=== PATIENT | female | born 1960 | race Caucasian/White ===

== ENCOUNTER → 2020-02-19 12:07 | Outpatient (CLI) | payer OTHER, SELFPAY ==
--- NOTE | 2020-02-19 12:09 | DI.CT.S_ITS ---
PROCEDURE: CT HEAD/BRAIN WO CON INDICATIONS: Aneurysm TECHNIQUE: Noncontrast 4.5 mm thick angled axial sections acquired from the foramen magnum to the vertex, with coronal and sagittal reformats. For radiation dose reduction, the following was used: automated exposure control, adjustment of mA and/or kV according to patient size. COMPARISON: None. FINDINGS: Image quality: Excellent. CSF spaces: Basal cisterns are patent. No extra-axial fluid collections. Ventricles are normal in size and shape. Brain: No midline shift. No intracranial masses or hemorrhage. Begmu-white matter interface is normal. Skull and face: Calvarium and visualized facial bones are intact, without suspicious lesions. Sinuses: Visualized sinuses and mastoids are clear. IMPRESSION: No acute intracranial finding. Please note that without IV contrast, intracranial aneurysms cannot be detected. Consider CT angiogram for further evaluation if clinically warranted. Dictated by: Jac Mchugh M.D. on 02/19/2020 at 13:08 Approved by: Jac Mchugh M.D. on 02/19/2020 at 13:11
--- NOTE | 2020-02-19 12:55 | DI.CT.S_ITS ---
PROCEDURE: CT CHEST WO CON INDICATIONS: Abnormal finding of lung field TECHNIQUE: Noncontrast 2.0-2.5 mm thick sections acquired from the pulmonary apices to the posterior costophrenic angles. 7 mm thick axial MIP and 5 mm coronal and sagittal reformats were then acquired. A low radiation dose technique was utilized. COMPARISON: [facility], CT, THORAX WITHOUT CONTRAST, 01/12/2016, 13:01. FINDINGS: Image quality: Diagnostic, given the low radiation dose technique. Lungs and pleura: 3 mm pulmonary nodule at the left lung base is unchanged when compared with the CT dated January 12, 2016. Ill-defined ground-glass airspace opacity surrounding a distal bronchus are redemonstrated within the left upper lobe. Accounting for variation in slice thickness, findings are similar in extent (series 3/images 113-122). A previously visualized is 7 mm in diameter pulmonary nodule at the left hilum now measures 9 mm in diameter (series 3/image 106). It is unclear whether the size differential is secondary to growth or difference in slice thickness. No new pulmonary nodules. No acute airspace opacities. Mediastinum: Heart size is normal. No pericardial effusion. No mediastinal adenopathy by size criteria. Thoracic aorta and central pulmonary arteries are normal in size. Scattered atheromatous calcifications are present within the aortic arch. Esophagus is normal in caliber. No hiatal hernia. Bones and chest wall: No suspicious bony lesions. No vertebral body compression fractures. No axillary or supraclavicular adenopathy by size criteria. Thyroid gland is unremarkable . Abdomen: The liver demonstrates diffuse fatty infiltration. Visualized upper abdomen solid organs and bowel loops appear normal in the absence of contrast. IMPRESSION: 1. Stable appearance of left upper lobe ground-glass opacities when compared with the study from 2016. Given the chronicity of this finding, no further follow-up recommended. 2. Probable stable 9 mm left hilar pulmonary nodule when accounting for variation in slice thickness compared to the 2016 study. 3. No new pulmonary nodules or acute airspace opacities. 4. Hepatic steatosis. Fleischner Society criteria for SOLID lung nodule followup. Nodule size (mm)Low-risk patientHigh-risk patient<6 (single or multiple)No routine followup.Optional CT at 12 months. 6-8 (single or multiple)CT at 6-12 months, then optional CT at 18-24 mo.CT at 6-12 months, then CT at 18-24 months. >8 (single)CT at 3 months, PET-CT, or biopsy. Same as for low-risk pts. >8 (multiple)CT at 3-6 months, then optional CT at 18-24 mo.CT at 3-6 months, then CT at 18-24 months. Fleischner Society criteria for SUB-SOLID lung nodule followup. Solitary pure ground-glass nodules<6 mm (ground glass or part solid)No followup needed. 6 mm or larger (ground glass)CT at 6-12 months to confirm persistence, then CT every 2 years until 5 years.6 mm or larger (part solid)CT at 3-6 months to confirm persistence, then annual CT until 5 years if unchanged and solid component remains <6 mm. Multiple sub-solid nodules<6 mmCT at 3-6 months, then CT consider at 2 & 4 years for high risk patients. [address] at 3-6 months. Subsequent management based on most suspicious lesions. Recommendations do not apply to lung cancer screening, patients with immunosuppression, or patients with known primary cancer. Dictated by: Kathy Suazo M.D. on 02/19/2020 at 13:45 Approved by: Kathy Suazo M.D. on 02/19/2020 at 13:50
== END ==
PROVIDERS: Family Provider Internal Medicine; PCP Internal Medicine; Referring Provider Internal Medicine; Visit Provider Internal Medicine
DX: I72.9 Aneurysm of unspecified site (principal); R91.8 Other nonspecific abnormal finding of lung field; Z78.0 Asymptomatic menopausal state; E07.9 Disorder of thyroid, unspecified
CPT/HCPCS: 70450; 71250; 77080

== ENCOUNTER → 2020-04-07 10:39 | Outpatient (CLI) | payer OTHER, SELFPAY ==
--- NOTE | 2020-04-07 | DI.US.S_ITS ---
PROCEDURE: US RENAL COMPLETE INDICATIONS: Chronic kidney disease, stage 3 unspecified TECHNIQUE: Real-time scanning was performed of the kidneys and bladder, with image documentation. COMPARISON: None. FINDINGS: Kidneys: Both kidneys demonstrate generalized increased echogenicity. Right kidney measures 9 cm long; left kidney measures 10.3 cm long. Right renal cortical thickness is 1.1 cm; left renal cortical thickness is 1.7 cm. Renal cortical echotexture is normal. No nephrolithiasis. Mild bilateral hydronephrosis can be seen, which does not resolve postvoid. Mild lobulation can be seen of both kidneys, yet without eri masses identified. Bladder: Pre-void bladder volume is 248 mL. Post-void residual is 21 mL. Pre-void images demonstrate no intraluminal masses or stones. On pre-void images, both ureteral jets are noted with color Doppler interrogation. (Of note, ureteral jets may not be detectable in up to 25% of cases due to insufficient differences in specific gravity between ureteral and bladder urine). Miscellaneous: No free pelvic fluid. Fatty liver infiltration is incidentally noted. IMPRESSION: The right kidney is small in size. Both kidneys demonstrate increased echogenicity, which is consistent with chronic renal disease. Mild bilateral hydronephrosis is seen, which does not resolve postvoid. No solid renal masses are seen, although both kidneys demonstrate a lobulated contour. Mild postvoid residual, 21 cc. Dictated by: Rosalio Stallworth M.D. on 04/07/2020 at 11:05 Approved by: Rosalio Stallworth M.D. on 04/07/2020 at 11:07
== END ==
PROVIDERS: Family Provider Internal Medicine; PCP Internal Medicine; Referring Provider Internal Medicine Nephrology; Visit Provider Internal Medicine Nephrology
DX: N18.30 Chronic kidney disease, stage 3 unspecified (principal); N13.30 Unspecified hydronephrosis
CPT/HCPCS: 76770

== ENCOUNTER → 2020-06-10 11:28 | Outpatient (CLI) | payer OTHER, SELFPAY ==
--- NOTE | 2020-06-10 12:02 | DI.CT.S_ITS ---
PROCEDURE: CT ABDOMEN PELVIS WO CON INDICATIONS: Unspecified hydronephrosis TECHNIQUE: Noncontrast 5 mm thick sections acquired from the diaphragms to the symphysis. 5 mm coronal and sagittal reformats were then performed. For radiation dose reduction, the following was used: automated exposure control, adjustment of mA and/or kV according to patient size. COMPARISON: [facility], CT, PE STUDY (CTA CHEST), 10/08/2015, 12:29. FINDINGS: Image quality: Excellent. ABDOMEN: Lung bases: Lung bases are clear. Heart size is normal. Heterogeneous geographic low attenuation seen the liver which is poorly defined probably related to fatty infiltration. The Gallbladder normal. Pancreas is normal in contours. Spleen is normal in size. No adrenal nodules. Kidneys are normal in size, without hydronephrosis or nephrolithiasis. Peritoneum and bowel: Unenhanced bowel loops demonstrate normal wall thickness and caliber. No free fluid or air. Normal appendix. Nodes and vessels: No retroperitoneal or mesenteric adenopathy by size criteria. Aorta and inferior vena cava are normal in caliber. Miscellaneous: No ventral hernias. PELVIS: Genitourinary: Bladder wall thickness is normal. Miscellaneous: No inguinal hernias or adenopathy. Bones: No vertebral body compression fracture. Spondylytic changes and facet arthropathy. IMPRESSION: No urolithiasis. No evidence of urinary obstruction. Normal appendix. Dictated by: Familia Curran M.D. on 06/10/2020 at 13:08 Approved by: Familia Curran M.D. on 06/10/2020 at 13:18
== END ==
PROVIDERS: Family Provider Internal Medicine; PCP Internal Medicine; Referring Provider Internal Medicine; Visit Provider Internal Medicine Nephrology
DX: N13.30 Unspecified hydronephrosis (principal)
CPT/HCPCS: 74176

== ENCOUNTER 2021-02-05 12:49 | Emergency (ER) | payer OTHER, SELFPAY ==
[2021-02-05 13:05] VITALS: BP 190/80; PULSE 51; RESP 15; TEMP 36.2; O2SAT 99; BMI 26.5
--- NOTE | 2021-02-05 13:07 | DI.RAD.S_ITS ---
PROCEDURE: XR HAND LT MIN 3V INDICATIONS: smashed fingers left hand 3rd/4th TECHNIQUE: 3 views of the hand(s) acquired. COMPARISON: None. FINDINGS: Bones: No fractures or dislocations. Carpal bones are normally aligned. No suspicious bony lesions. Osteoarthritic degenerative changes noted in the 1st CMC, 1st DIP and 3rd DIP joints. Soft tissues: No suspicious soft tissue calcifications. IMPRESSION: No fracture. No acute osseous lesion. If symptoms and/or clinical suspicion for pathology persists, further assessment with repeat radiographs (7-10 days) or advanced imaging (e.g. CT, MRI or bone scan) should be considered. Dictated by: Michaela Blanchard MD, PhD on 02/05/2021 at 13:33 Approved by: Michaela Blanchard MD, PhD on 02/05/2021 at 13:34
--- NOTE | 2021-02-05 16:31 | ED_ITS ---
HPI - Extremity Injury (Upper) General Chief Complaint: Extremity Injury, Upper Stated Complaint: SMASHED FINGERS LT HAND Time Seen by Provider: 02/05/21 16:29 Source: patient Mode of arrival: Ambulatory Limitations: no limitations History of Present Illness HPI narrative: Staci presents today with chief complaint of left middle finger pain. She reports that she was at work and she was sliding 1 of the glass doors and caught her finger in the door jam. It initially did not hurt but has been throbbing today. She is left-hand dominant. Last tetanus was 6+ years ago. She denies any other concerns or complaints at this time. Related Data Home Medications Medication Instructions Recorded Confirmed CA PANTOTHENATE/FOLIC ACID/VIT 1 tab PO QDAY #0 10/10/12 (MULTIVITAMIN) CHOLECALCIFEROL (VITAMIN D) 5,000 units PO QDAY #0 10/10/12 DICLOFENAC SODIUM (VOLTAREN) 75 mg PO AMCC #0 10/10/12 Flaxseed Oil (#FLAXSEED OIL) 1,300 mg PO QDAY #0 10/10/12 colesevelam 625 mg tablet (WelChol) 625 mg PO HS #0 10/10/12 metaxalone 800 mg tablet (Skelaxin) 800 mg PO HS #0 10/10/12 misoprostol 200 mcg tablet 200 mcg PO QDAY #0 10/10/12 (Cytotec) Allergies Allergy/AdvReac Type Severity Reaction Status Date / Time oxycodone [OXYCODONE] AdvReac Intermediate VOMIT Verified 02/05/21 13:05 Review of Systems Review of Systems Narrative: As per HPI Patient History Social History Smoking Status: Unknown if ever smoked Smoking Status: Unknown if ever smoked alcohol intake frequency: holidays/special occasions only Substance Use Type: does not use Exam Narrative Exam Narrative: Exam Narrative: Const General: cooperative, healthy appearing, comfortable, no acute distress, well developed and well groomed Nutritional Appearance: average body habitus Orientation: alert and oriented x3 HENMT Head: normal to inspection and atraumatic Ears: hearing grossly normal bilaterally Nose: external nose normal and nares normal Face and sinus: normal facial exam Neck Neck: normal visual inspection and supple Resp Effort & Inspection: normal respiratory effort, able to speak in complete sentences, no audible wheezes, not labored, no nasal flaring and no respiratory distress Neuro General: alert, oriented x3, gait normal, tone normal and moves all extremities Cognition: normal cognition Speech: speech normal Gait: normal gait Extremities Upper extremities exposed. She has small, nonbleeding, superficial laceration to her distal left 3rd finger. No significant underlying bony tenderness. Full range of motion. Capillary refill is normal. Sensation is intact. Psych Appearance: grossly normal and well kempt Mental Status: mental status grossly normal Speech and Movement: speech and movement normal Mood: congruent mood Affect: normal affect Initial Vital Signs Initial Vital Signs: Vital Signs Temperature 97.2 F L 02/05/21 13:05 Pulse Rate 51 L 02/05/21 13:05 Respiratory Rate 15 02/05/21 13:05 Blood Pressure 190/80 H 02/05/21 13:05 Pulse Oximetry 99 02/05/21 13:05 Course Orders Ordered: Discontinued Medications Diphtheria/Tetanus/Acell Pertussis (Tet,Diph,Pertuss(Acell),Vac/Pf 0.5 Ml Syrin ge) 0.5 ml IM .ONCE ONE Stop: 02/05/21 16:43 Last Admin: 02/05/21 16:47 Dose: 0.5 ml Documented by: VIOLETTE Vital Signs Vital signs: Vital Signs - 8 hr 02/05/21 13:05 Temperature 97.2 F L Pulse Rate 51 L Respiratory Rate 15 Blood Pressure 190/80 H Pulse Oximetry 99 MDM - Extremity Injury (Upper) MDM Narrative Medical decision making narrative: X-ray does not show any significant fracture. No procedure needed to control bleeding. Do not suspect any significant vascular injury or nerve injury. Recommend watchful waiting at this time. Return precautions discussed. Patient verbalizes understanding and agrees to plan and has no further concerns at this time. Thank you A [id number] system was used with the dictation of this note. Please disregard any spelling or grammatical errors. Discharge Plan Departure Patient Disposition: Home Clinical Impression: Laceration of left middle finger Qualifiers: Encounter type: initial encounter Damage to nail status: without damage Foreign body presence: without foreign body Qualified Code(s): S61.213A - Laceration without foreign body of left middle finger without damage to nail, initial encounter Discharge Date/Time: 02/05/21 16:59 Activity Restrictions/Additional Instructions: It was nice to meet you this afternoon. Please monitor for signs of infection which include increased redness, swelling, pain, fever and return if you experience any of these. Otherwise, I expect this to heal up quickly. Thank you Power Case PAC Prescriptions: No Action DICLOFENAC SODIUM (VOLTAREN) 75 mg PO AMCC Qty: 0 RF: 0 misoprostol [Cytotec] 200 MCG tablet 200 mcg PO QDAY Qty: 0 RF: 0 metaxalone [Skelaxin] 800 MG tablet 800 mg PO HS Qty: 0 RF: 0 CHOLECALCIFEROL (VITAMIN D) 5,000 units PO QDAY Qty: 0 RF: 0 CA PANTOTHENATE/FOLIC ACID/VIT (MULTIVITAMIN) 1 tab PO QDAY Qty: 0 RF: 0 Flaxseed Oil (#FLAXSEED OIL) 1,300 mg PO QDAY Qty: 0 RF: 0 colesevelam [WelChol] 625 MG tablet 625 mg PO HS Qty: 0 RF: 0 Referrals: Tino Avery MD [Primary Care Provider] -
[2021-02-05] MEDS: TET,DIPH,PERTUSS(ACELL),VAC/PF 0.5 ML SYRINGE IM (16:47)
== END 2021-02-05 16:59 | disposition home or self-care (01) ==
PROVIDERS: Emergency Provider Physician Assistant; Family Provider Internal Medicine; PCP Internal Medicine
DX: S61.213A Laceration without foreign body of left middle finger without damage to nail, initial encounter (principal); W23.0XXA Caught, crushed, jammed, or pinched between moving objects, initial encounter; Y99.0 Civilian activity done for income or pay; Z23 Encounter for immunization
CPT/HCPCS: 73130; 90471; 99283; 90715

== ENCOUNTER 2021-03-15 09:50 | Emergency (ER) | payer OTHER, SELFPAY ==
[2021-03-15] VITALS (11 sets, daily range): BP systolic 137–163; BP diastolic 63–73; PULSE 45–56; RESP 10–27; TEMP 37.1; O2SAT 96–100
--- NOTE | 2021-03-15 09:53 | DI.RAD.S_ITS ---
PROCEDURE: XR CHEST 1V INDICATIONS: Chest pain TECHNIQUE: One view of the chest was acquired. COMPARISON: [facility], , CHEST 1 VIEW, 10/08/2015, 11:27. FINDINGS: Surgical changes and devices: None. Lungs and pleura: Lungs are clear. No pleural effusions or pneumothorax. Mediastinum: Mediastinal contours appear normal. Heart size is normal. Bones and chest wall: No suspicious bony lesions. Overlying soft tissues appear unremarkable. IMPRESSION: No acute cardiopulmonary pathology. Dictated by: Thee Araujo M.D. on 03/15/2021 at 10:40 Approved by: Thee Araujo M.D. on 03/15/2021 at 10:40
--- NOTE | 2021-03-15 10:06 | ED_ITS ---
HPI - Chest Pain General Chief Complaint: Chest Pain Stated Complaint: radiating chest and shoulder pain Time Seen by Provider: 03/15/21 09:52 Source: patient Mode of arrival: Family Vehicle Limitations: no limitations History of Present Illness HPI narrative: Patient is a 60-year-old female. No prior cardiac history. Does have a history of high blood pressure. Has a history of chronic bronchitis. Is here for evaluation of off and on left-sided chest discomfort that radiates to her back into her left shoulder. She states that has been off and on for the past couple days/week. Last evening it was worse than what it has been. At the time of my exam she is having some discomfort but is much better than was last evening. She is afebrile. No coughing. States the symptoms do not get better with palpation movement were eating. Has no shortness of breath. Pain does not change with breathing. She has had symptoms similar to this a couple years ago and she stated that she was diagnosed with pneumonia at the time. She has no fevers and no productive cough currently. No abdominal pain. No nausea vomiting. No urinary symptoms. No change in bowel habits. No lower extremity swelling. No sore throat. No headache. No vision changes. No rashes. Related Data Home Medications Medication Instructions Recorded Confirmed CA PANTOTHENATE/FOLIC ACID/VIT 1 tab PO QDAY #0 10/10/12 (MULTIVITAMIN) CHOLECALCIFEROL (VITAMIN D) 5,000 units PO QDAY #0 10/10/12 DICLOFENAC SODIUM (VOLTAREN) 75 mg PO [facility] #0 10/10/12 Flaxseed Oil (#FLAXSEED OIL) 1,300 mg PO QDAY #0 10/10/12 colesevelam 625 mg tablet (WelChol) 625 mg PO HS #0 10/10/12 metaxalone 800 mg tablet (Skelaxin) 800 mg PO HS #0 10/10/12 misoprostol 200 mcg tablet 200 mcg PO QDAY #0 10/10/12 (Cytotec) Allergies Allergy/AdvReac Type Severity Reaction Status Date / Time oxycodone [OXYCODONE] AdvReac Intermediate VOMIT Verified 03/15/21 10:04 Review of Systems Constitutional Constitutional: Reports as per HPI and Reports system reviewed and no additional complaints, except as documented Eyes Eyes: Reports system reviewed and no additional complaints, except as documented ENT Ears, Nose, Mouth, and Throat: Reports system reviewed and no additional complaints, except as documented and Reports as per HPI Cardiovascular Cardiovascular: Reports as per HPI and Reports system reviewed and no additional complaints, except as documented Respiratory Respiratory: Reports as per HPI and Reports system reviewed and no additional complaints, except as documented Gastrointestinal Gastrointestinal: Reports system reviewed and no additional complaints, except as documented Genitourinary Genitourinary: Reports system reviewed and no additional complaints, except as documented Musculoskeletal Musculoskeletal: Reports system reviewed and no additional complaints, except as documented Integumentary/Breasts Skin/Breast: Reports system reviewed and no additional complaints, except as documented Neurologic Neurologic: Reports system reviewed and no additional complaints, except as documented Endocrine Endocrine: Reports system reviewed and no additional complaints, except as documented Hematologic/Lymphatic Hematologic/Lymphatic: Reports system reviewed and no additional complaints, except as documented Allergic/Immunologic Allergic/Immunologic: Reports system reviewed and no additional complaints, except as documented Patient History Medical History (Updated 03/15/21 @ 13:52 by Pipo Rocha DO) Chronic bronchitis Hypertension Pulmonary nodule, left Social History Smoking Status: Never smoker Smoking Status: Never smoker alcohol intake frequency: holidays/special occasions only Substance Use Type: does not use Exam Initial Vital Signs Initial Vital Signs: Vital Signs Temperature 98.7 F 03/15/21 10:00 Pulse Rate 53 L 03/15/21 10:00 Respiratory Rate 16 03/15/21 10:00 Blood Pressure 163/70 H 03/15/21 10:00 Pulse Oximetry 100 03/15/21 10:00 Const General: cooperative, healthy appearing and comfortable [facility] Head: normal to inspection and normocephalic Eyes General: appearance normal, both eyes and all related structures Neck Neck: normal visual inspection Chest Chest: normal inspection of the chest, No crepitus and No tenderness Resp Effort & Inspection: normal respiratory effort and no cough Cardio Rate: regular rate Rhythm: regular rhythm GI Inspection: normal to inspection Palpation: soft and No tender Back/Spine/Pelvis Back: normal to inspection Skin General: no rashes or lesions noted Lesions: no lesions Rashes: no rashes Neuro General: patient alert, patient awake, patient oriented x3 and moves all extremities Extrem General: normal to inspection, capillary refill normal and No edema Psych Appearance: grossly normal and well kempt Scores HEART Score Heart Score history: Slightly Suspicious Heart Score EKG: Normal Heart Score Age: 45-64 years old Heart Score risk factors: 1-2 risk factors Heart Score troponin: < or = to normal limit Heart Score Total: 2 Course Orders Ordered: ED Orders 03/15/21 09:53 XR chest 1V Stat 03/15/21 09:54 EKG-12 Lead Stat 03/15/21 10:20 Complete Blood Count AUTO DIFF Stat Comprehensive Metabolic Panel Stat Lipase Stat Troponin & CK Cardiac Panel Stat 03/15/21 13:05 Troponin & CK Cardiac Panel Stat Vital Signs Vital signs: Vital Signs - 8 hr 03/15/21 10:00 03/15/21 10:08 03/15/21 10:30 Temperature 98.7 F Pulse Rate 53 L 55 L 56 L Respiratory Rate 16 13 12 Blood Pressure 163/70 H Pulse Oximetry 100 100 100 03/15/21 10:31 03/15/21 10:56 03/15/21 11:00 Temperature Pulse Rate 52 L 48 L 47 L Respiratory Rate 10 L 20 11 L Blood Pressure 141/65 H 139/73 138/68 Pulse Oximetry 99 98 97 03/15/21 11:30 03/15/21 12:00 Temperature Pulse Rate 50 L 45 L Respiratory Rate 27 H 15 Blood Pressure 137/63 Pulse Oximetry 99 96 MDM - Chest Pain Lab Data Attestation: I reviewed the patient's lab results. Result diagrams: 03/15/21 10:20 03/15/21 10:20 Labs: Lab Results 03/15/21 03/15/21 03/15/21 Range/Units 10:20 10:20 13:05 WBC 5.1 (4.5-11.0) X10^3/uL RBC 3.95 L (4.0-5.2) X10^6/uL Hgb 12.1 (12.0-16.0) g/dL Hct 36.1 (36-46) % MCV 91.3 (80-100) fL MCH 30.6 (26-34) PG MCHC 33.6 (30-36) % RDW 12.9 (11.6-14.8) % Plt Count 220 (150-400) X10^3/uL Neut % (Auto) 63.0 (50-75) % Lymph % (Auto) 24.1 L (25-40) % Milam % (Auto) 9.8 (3-14) % Eos % (Auto) 2.6 (2-4) % Baso % (Auto) 0.5 (0-2) % Neut # (Auto) 3200 (4575-0099) /uL Lymph # (Auto) 1200 (8547-4737) /uL Milam # (Auto) 500 (0-900) /uL Eos # (Auto) 100 (0-450) /uL Baso # (Auto) 0 (0-100) /uL Sodium 135 L (137-145) mmol/L Potassium 4.0 (3.4-5.1) mmol/L Chloride 105 (98-107) mmol/L Carbon Dioxide 26 (22-32) mmol/L BUN 17 (7-17) mg/dL Creatinine 0.99 (0.52-1.04) mg/dL Estimated GFR 57.2 L (>60) mL/min BUN/Creatinine Ratio 17.2 (6-22) Glucose 92 (80-110) mg/dL Calcium 9.8 (8.4-10.2) mg/dL Total Bilirubin 0.5 (0.2-1.3) mg/dL AST 30 (14-36) IU/L ALT 26 (<35) IU/L Alkaline Phosphatase 47 (38-126) U/L Total Creatine Kinase 83 130 (30-135) U/L CK-MB (CK-2) TNP 1.45 CK-MB (CK-2) Rel Index TNP 1.1 L Troponin I < 0.012 < 0.012 (0.01-0.034) ng/mL Total Protein 6.6 (6.3-8.2) g/dL Albumin 4.2 (3.5-5.0) g/dL Globulin 2.4 (1.7-4.1) g/dL Albumin/Globulin Ratio 1.8 (1.0-2.8) Lipase 113 (23-300) U/L Imaging Data Chest x-ray: Radiologist's Impression: [address] [address] XRay Report Signed Patient: Staci Nance MR#: [id number] : 1960 Acct:[id number] Age/Sex: 60 / F Date of Service: 03/15/21 Loc: ED Accession Number: [id number] ?? Procedure: XR chest 1V Ordering Provider: Pipo Rocha D.O. PROCEDURE:? XR CHEST 1V ? INDICATIONS:? Chest pain ? TECHNIQUE:? One view of the chest was acquired.? ? COMPARISON:? Located Within [facility], , CHEST 1 VIEW, 10/08/2015, 11:27. ? FINDINGS:? ? Surgical changes and devices:? None.? ? Lungs and pleura:? Lungs are clear.? No pleural effusions or pneumothorax.? ? Mediastinum:? Mediastinal contours appear normal.? Heart size is normal.? ? Bones and chest wall:? No suspicious bony lesions.? Overlying soft tissues appear unremarkable.? ? IMPRESSION:? No acute cardiopulmonary pathology. ? ? Dictated by: Thee Araujo M.D. on 03/15/2021 at 10:40 ? ? Approved by: Thee Araujo M.D. on 03/15/2021 at 10:40?? ECG Data Attestation: I personally reviewed and interpreted this ECG as follows: Interpretation: Sinus bradycardia Ventricular rate of 49 Normal axis Normal QRS Normal QTC No ST T wave changes MDM Narrative Medical decision making narrative: Low risk heart score, EKG is unremarkable, troponins negative x2. Had a discussion with the patient regarding this. The plan will be is to have her follow-up with her primary doctor for further risk stratification to include a stress test. She was given return precautions and follow-up instructions. She expressed understanding and agreement. Discharge Plan Departure Patient Disposition: Home Clinical Impression: Atypical chest pain Instructions: DI for Atypical Chest Pain Activity Restrictions/Additional Instructions: I do recommend that you contact your primary doctor to discuss further workup and to schedule a stress test. Continue to take all of your medications as di rected. Return to the emergency department for any new or worsening symptoms Prescriptions: No Action DICLOFENAC SODIUM (VOLTAREN) 75 mg PO [facility] Qty: 0 RF: 0 misoprostol [Cytotec] 200 MCG tablet 200 mcg PO QDAY Qty: 0 RF: 0 metaxalone [Skelaxin] 800 MG tablet 800 mg PO HS Qty: 0 RF: 0 CHOLECALCIFEROL (VITAMIN D) 5,000 units PO QDAY Qty: 0 RF: 0 CA PANTOTHENATE/FOLIC ACID/VIT (MULTIVITAMIN) 1 tab PO QDAY Qty: 0 RF: 0 Flaxseed Oil (#FLAXSEED OIL) 1,300 mg PO QDAY Qty: 0 RF: 0 colesevelam [WelChol] 625 MG tablet 625 mg PO HS Qty: 0 RF: 0 Referrals: Tino Avery MD [Primary Care Provider] -
[2021-03-15 10:37] LABS: Add Manual Diff / Slide Review NO; Basophils Absolute Auto 0 /uL (0-100); Basophils Percent Auto 0.5 % (0-2); Eosinophils Absolute Auto 100 /uL (0-450); Eosinophils Percent Auto 2.6 % (2-4); Hematocrit 36.1 % (36-46); Hemoglobin 12.1 g/dL (12.0-16.0); Lymphocytes Absolute Auto 1200 /uL (1100-4500); Lymphocytes Percent Auto 24.1 % (25-40); Mean Corpuscular HGB Conc 33.6 % (30-36); Mean Corpuscular Hemoglobin 30.6 PG (26-34); Mean Corpuscular Volume 91.3 fL (80-100); Monocytes Absolute Auto 500 /uL (0-900); Monocytes Percent Auto 9.8 % (3-14); Neutrophils Absolute Auto 3200 /uL (1500-7000); Platelet Count 220 X10^3/uL (150-400); Red Blood Cell Count 3.95 X10^6/uL (4.0-5.2); Red Cell Distribution Width 12.9 % (11.6-14.8); White Blood Cell Count 5.1 X10^3/uL (4.5-11.0)
[2021-03-15 10:53] LABS: Alanine Aminotransferase 26 IU/L (<35); Albumin 4.2 g/dL (3.5-5.0); Albumin Globulin Ratio 1.8 (1.0-2.8); Alkaline Phosphatase 47 U/L (38-126); Aspartate Aminotransferase 30 IU/L (14-36); BUN Creatinine Ratio 17.2 (6-22); Bilirubin Total 0.5 mg/dL (0.2-1.3); Blood Urea Nitrogen 17 mg/dL (7-17); Calcium 9.8 mg/dL (8.4-10.2); Carbon Dioxide 26 mmol/L (22-32); Chloride 105 mmol/L (98-107); Creatine Kinase 83 U/L (30-135); Estimated Glomerular Filt Rate 57.2 mL/min (>60); Globulin 2.4 g/dL (1.7-4.1); Glucose 92 mg/dL (80-110); HEMOLYSIS 17 (0-50); Lipase 113 U/L (23-300); Sodium 135 mmol/L (137-145); Total Protein 6.6 g/dL (6.3-8.2)
[2021-03-15 11:02] LABS: Troponin I < 0.012 ng/mL (0.01-0.034)
[2021-03-15 13:29] LABS: Creatine Kinase 130 U/L (30-135)
[2021-03-15 13:41] LABS: Troponin I < 0.012 ng/mL (0.01-0.034)
[2021-03-15 13:44] LABS: CKMB % Relative Index 1.1 % (1.5-5.0); Creatine Kinase MB 1.45 ng/mL (<2.37)
== END 2021-03-15 13:57 | disposition home or self-care (01) ==
PROVIDERS: Emergency Provider Emergency Medicine; Family Provider Internal Medicine; PCP Internal Medicine
DX: R07.89 Other chest pain (principal)
CPT/HCPCS: 36415; 71045; 80053; 82550; 82553; 83690; 84484; 85025; 93005; 93010; 99284

== ENCOUNTER → 2021-04-07 15:47 | Outpatient (CLI) | payer OTHER, SELFPAY ==
--- NOTE | 2021-04-07 15:49 | DI.MG.S_ITS ---
BILATERAL DIGITAL SCREENING MAMMOGRAM 3D/2D WITH CAD: 04/07/2021 CLINICAL: Routine screening. Comparison is made to exams dated: 08/15/2017 mammogram - [facility], 06/11/2013 mammogram, and 11/16/2010 mammogram - [facility]. There are scattered fibroglandular elements in both breasts. Current study was also evaluated with a Computer Aided Detection (CAD) system. There is a focal asymmetry in the right breast at 11 o'clock middle depth. This is more prominent. No other significant masses, calcifications, or other findings are seen in either breast. IMPRESSION: INCOMPLETE: NEEDS ADDITIONAL IMAGING EVALUATION The focal asymmetry in the right breast is indeterminate. Additional views with possible ultrasound are recommended. This exam was interpreted at Station ID: [id number]. NOTE: For mammograms, a report in lay terms will be sent to the patient. Approximately 15% of breast malignancies will not be visualized mammographically. In the management of a palpable breast mass, a negative mammogram must not discourage biopsy of a clinically suspicious lesion. Electronically Signed By: Jac Mchugh M.D., jr/rolando:04/07/2021 16:15:43 letter sent: Additional Imaging Needed ACR BI-RADS Category 0: Incomplete [id number]
== END ==
PROVIDERS: Family Provider Internal Medicine; PCP Internal Medicine; Referring Provider Internal Medicine; Visit Provider Internal Medicine
DX: Z12.31 Encounter for screening mammogram for malignant neoplasm of breast (principal)
CPT/HCPCS: 77063; 77067

== ENCOUNTER → 2021-05-05 09:29 | Outpatient (CLI) | payer OTHER, SELFPAY ==
--- NOTE | 2021-05-05 09:30 | DI.US.S_ITS ---
LIMITED ULTRASOUND OF RIGHT BREAST: 05/05/2021 CLINICAL: Patient returns today to evaluate a focal asymmetry in the right breast. Comparison is made to exams dated: 05/05/2021 mammogram, 04/07/2021 mammogram, and 08/15/2017 mammogram - [facility]. Real-time ultrasound of the right breast 11 o'clock region was performed. Begum scale images of the real-time examination were reviewed. There is a area of fibroglandular tissue in the right breast at 11 o'clock middle depth. This corresponds with the mammographic finding. IMPRESSION: BENIGN There is no sonographic evidence of malignancy. The area of fibroglandular tissue in the right breast is benign. A 1 year screening mammogram is recommended. Exam findings were conveyed to the patient. This exam was interpreted at Station ID: [id number]. Electronically Signed By: Nestor Burks M.D. slc/:05/05/2021 10:25:00 letter sent: Normal Exam Ultrasound BI-RADS: 2 Benign
--- NOTE | 2021-05-05 09:30 | DI.MG.S_ITS ---
UNILATERAL RIGHT DIGITAL DIAGNOSTIC MAMMOGRAM 3D/2D WITH ADDITIONAL VIEWS: 05/05/2021 CLINICAL: Additional evaluation requested from prior study. Comparison is made to exams dated: 04/07/2021 mammogram, 08/15/2017 mammogram - [facility], 06/11/2013 mammogram, and 11/16/2010 mammogram - [facility]. There are scattered fibroglandular elements in right breast. There is a focal asymmetry in the right breast at 11 o'clock middle depth. This is less prominent. No other significant masses or calcifications are seen in the breast. IMPRESSION: INCOMPLETE: NEEDS ADDITIONAL IMAGING EVALUATION The focal asymmetry in the right breast resembles fibroglandular tissue and is indeterminate. A targeted ultrasound is recommended and will immediately follow. This exam was interpreted at Station ID: [id number]. NOTE: For mammograms, a report in lay terms will be sent to the patient. Approximately 15% of breast malignancies will not be visualized mammographically. In the management of a palpable breast mass, a negative mammogram must not discourage biopsy of a clinically suspicious lesion. Electronically Signed By: Nestor Burks M.D. slc/:05/05/2021 10:08:20 ACR BI-RADS Category 0: Incomplete [id number]
== END ==
PROVIDERS: Family Provider Internal Medicine; PCP Internal Medicine; Referring Provider Internal Medicine; Visit Provider Internal Medicine
DX: R92.8 Other abnormal and inconclusive findings on diagnostic imaging of breast (principal); N64.89 Other specified disorders of breast
CPT/HCPCS: 76642; 77065; G0279

== ENCOUNTER → 2022-06-02 16:13 | Outpatient (CLI) | payer OTHER, SELFPAY ==
--- NOTE | 2022-06-02 16:15 | DI.MG.S_ITS ---
BILATERAL DIGITAL SCREENING MAMMOGRAM 3D/2D WITH CAD: 06/02/2022 CLINICAL: Routine screening. Comparison is made to exams dated: 04/07/2021 mammogram, 08/15/2017 mammogram - [facility], and 06/11/2013 mammogram - [facility]. There are scattered areas of fibroglandular density in both breasts (category b / 25%-50% glandular tissue). Current study was also evaluated with a Computer Aided Detection (CAD) system. No significant masses, calcifications, or other findings are seen in either breast. There has been no significant interval change. IMPRESSION: NEGATIVE There is no mammographic evidence of malignancy. A 1 year screening mammogram is recommended. Based on the Tyrer Cuzick model (a risk assessment model) the patient's lifetime risk is 10.1% and her 10 year risk is 4.9%. According to the ACR, ACS, and NCCN guidelines, an annual breast MRI exam along with mammogram is recommended if the patient's lifetime risk is 20% or greater. This exam was interpreted at Station ID: [id number]. NOTE: For mammograms, a report in lay terms will be sent to the patient. Approximately 15% of breast malignancies will not be visualized mammographically. In the management of a palpable breast mass, a negative mammogram must not discourage biopsy of a clinically suspicious lesion. Electronically Signed By: Dorie jones/rolando:06/03/2022 09:37:27 letter sent: Normal Exam ACR BI-RADS Category 1: Negative [id number]
== END ==
PROVIDERS: Family Provider Internal Medicine; PCP Internal Medicine; Referring Provider Internal Medicine; Visit Provider Internal Medicine
DX: Z12.31 Encounter for screening mammogram for malignant neoplasm of breast (principal)
CPT/HCPCS: 77063; 77067

== ENCOUNTER 2022-08-16 11:02 | Emergency (ER) | payer OTHER, SELFPAY ==
[2022-08-16 11:08] VITALS: BP 167/77; PULSE 72; RESP 15; TEMP 36.2; O2SAT 97; BMI 29.2
--- NOTE | 2022-08-16 11:17 | DI.RAD.S_ITS ---
PROCEDURE: XR KNEE LT 3V INDICATIONS: left knee / ankle pain TECHNIQUE: 3 views of the knee were acquired. COMPARISON: None. FINDINGS: Bones: No fractures or dislocations. No suspicious bony lesions. Patellofemoral joint space narrowing. Medial lateral compartments are relatively preserved. Soft tissues: No joint effusion. No suspicious soft tissue calcifications. IMPRESSION: Patellofemoral osteoarthritis Approved by: Hilario Tom M.D. on 08/16/2022 at 10:57
--- NOTE | 2022-08-16 11:17 | DI.RAD.S_ITS ---
PROCEDURE: XR ANKLE LT MIN 3V INDICATIONS: ankle injury yesterday, lateral mall swelling TECHNIQUE: 3 views of the ankle were acquired. COMPARISON: [facility], , ANKLE 3 VIEWS RIGHT, 02/09/2009, 19:16. FINDINGS: Bones: No fractures or dislocations. Ankle mortise is normally aligned. No suspicious bony lesions. Fifth metatarsal and instrumentation partially imaged Soft tissues: No tibiotalar joint effusion. Achilles tendon appears normal. Lateral soft tissue swelling IMPRESSION: Soft tissue swelling without fracture Approved by: Hilario Tom M.D. on 08/16/2022 at 10:46
--- NOTE | 2022-08-16 11:19 | PC.NURSE ---
This pt is NOT a modified trauma. There is a mistake and it will not let me save the triage without choosing full or modified trauma.
--- NOTE | 2022-08-16 12:26 | ED.FALL ---
HPI - Fall General Chief Complaint: Fall Stated Complaint: fell T-1 lt ankle & knee are hurting Time Seen by Provider: 08/16/22 11:16 Source: patient Mode of arrival: Ambulatory History of Present Illness HPI Narrative: 62F nonsmoker with noncontributory medical history presents with significant other and chief complaint of a ground level fall yesterday in which she was walking in the lawn and inverted the left ankle. She denies any head neck or back pain. She denies any prodromal symptoms such as dizziness, weakness or lightheadedness. Denies any chest pain or shortness of breath. She now has pain with ambulation and improvement with rest. Most of her discomfort is over the lateral aspect of her ankle. She denies numbness, tingling or weakness. Related Data Home Medications Medication Instructions Recorded Confirmed CA PANTOTHENATE/FOLIC ACID/VIT 1 tab PO QDAY ##0 10/10/12 (MULTIVITAMIN) CHOLECALCIFEROL (VITAMIN D) 5,000 units PO QDAY ##0 10/10/12 DICLOFENAC SODIUM (VOLTAREN) 75 mg PO [facility] ##0 10/10/12 Flaxseed Oil (#FLAXSEED OIL) 1,300 mg PO QDAY ##0 10/10/12 colesevelam 625 mg tablet (WelChol) 625 mg PO HS ##0 10/10/12 metaxalone 800 mg tablet (Skelaxin) 800 mg PO HS ##0 10/10/12 misoprostol 200 mcg tablet 200 mcg PO QDAY ##0 10/10/12 (Cytotec) Allergies Allergy/AdvReac Type Severity Reaction Status Date / Time oxycodone [OXYCODONE] AdvReac Intermediate VOMIT Verified 08/16/22 11:12 Review of Systems Review of Systems Narrative: GENERAL: Denies chills, fatigue, malaise, fever, sweats. HEENT: Denies sinus pain, ear pain, sore throat, difficulty swallowing, dizziness. RESPIRATORY: Denies dyspnea, cough, wheezing, hemoptysis, sputum. CARDIOVASCULAR: Denies chest pain, palpitations, orthopnea, edema, GASTROINTESTINAL: Denies nausea, vomiting, abdominal pain, diarrhea, constipation, melena. : Denies dysuria, frequency, incontinence, hematuria, urinary retention. MUSCULOSKELETAL: See HPI SKIN: Denies rash, skin lesions, or other NEUROLOGIC: Denies weakness, headache, numbness, change in speech, confusion, seizures, incoordination. PSYCHIATRIC: No concerning psychosocial issues. 12 point review of systems is negative except for those stated above Patient History Medical History Chronic bronchitis Hypertension Pulmonary nodule, left Social History Smoking Status: Never smoker Smoking Status: Never smoker alcohol intake frequency: holidays/special occasions only Substance Use Type: does not use Exam Narrative Exam Narrative: GEN: AOx3 and in mild distress EYES: Pupils are equal, round, and reactive to light and accommodation. Extraoccular muscles are intact bilaterally. There is no subconjunctival hemorrhage or exudate. CHEST: Lungs are clear to auscultation bilaterally and free of wheezes, rales, or rhonchi. Heart rate is regular rhythm, there are no murmurs, clicks, rubs, or gallops. There is no chest wall tenderness. ABD: Abdomen is soft and nontender. There is no guarding or rebound. Bowel sounds are normal in all 4 quadrants. There is no mass or organomegaly. EXT: Full painless ROM of all extremities with no loss of sensation or strength. SKIN: Warm, pink, and dry. No erythema or rash Initial Vital Signs Initial Vital Signs: Vital Signs Temperature 97.2 F L 08/16/22 11:08 Pulse Rate 72 08/16/22 11:08 Respiratory Rate 15 08/16/22 11:08 Blood Pressure 167/77 H 08/16/22 11:08 Pulse Oximetry 97 08/16/22 11:08 Oxygen Delivery Method 08/16/22 11:08 Procedures Orthopedic Splinting/Casting Injury #1: Side: left Lower Extremity Injury Location: ankle Lower Extremity Immobilizer: boot orthosis Other Orthopedic Equipment: crutches Course Orders Ordered: ED Orders 08/16/22 11:17 XR ankle LT min 3V Stat XR knee LT 3V Stat Vital Signs Vital signs: Vital Signs - 8 hr 08/16/22 11:08 Temperature 97.2 F L Pulse Rate 72 Respiratory Rate 15 Blood Pressure 167/77 H Pulse Oximetry 97 Oxygen Delivery Method Room Air MDM - Fall Lab Data Labs: Urine Dip Bedside Urine Glucose Negative Bedside Urine Bilirubin - Negative Bedside Urine Ketone - Negative Urine Specific [place] 1.010 Bedside Urine Occult Blood - Negative Bedside Urine pH 6.0 Bedside Urine Protein - Negative Bedside Urine Urobilinogen - Negative Bedside Urine Nitrite - Negative Bedside Urine Leukocytes - Negative Esterase MDM Narrative Medical decision making narrative: [62-year-old female with left ankle pain after ground level fall yesterday] Multiple etiologies for patient's symptoms considered including, but not limited to: [Ankle sprain, high ankle sprain, fracture, dislocation, knee injury] Prior Charts reviewed: Prior notes reviewed Imaging reviewed: No fracture or dislocation Very reassuring exam, closed, isolated, neurovascularly intact, no ligamentous laxity. Most consistent with injury to the anterior talofibular ligament, no pain over talus or 5th metatarsal. There is a very minimal amount of pain with squeeze test. No pain over proximal fibula, no pain on the knee joint line, minimal effusion, no ligamentous instability. Findings and discharge diagnosis discussed with patient/family followed by verbalization of understanding Return precautions discussed with patient/family whom verbalize understanding of diagnosis and plan Discharge Plan Departure Patient Disposition: Home Clinical Impression: Ankle sprain Instructions: How to Prevent Falls Activity Restrictions/Additional Instructions: *You have been diagnosed with [left ankle sprain] *What to do: *Please continue to take your regular medications as directed. *Please follow up with your primary care provider in 2-3 days, call for an appointment. Let them know you were seen in the Emergency Department and that we ask that you be seen in follow up. We will electronically transmit a record of today's note if your PCP is in our system *Return to Emergency Department if you should have any new, worsening or concerning symptoms, such as [fever greater than 101 F, shaking chills, worsening pain, persistent vomiting or other bothersome symptoms] Prescriptions: No Action DICLOFENAC SODIUM (VOLTAREN) 75 mg PO [facility] Qty: 0 misoprostol [Cytotec] 200 MCG tablet 200 mcg PO QDAY Qty: 0 metaxalone [Skelaxin] 800 MG tablet 800 mg PO HS Qty: 0 CHOLECALCIFEROL (VITAMIN D) 5,000 units PO QDAY Qty: 0 CA PANTOTHENATE/FOLIC ACID/VIT (MULTIVITAMIN) 1 tab PO QDAY Qty: 0 Flaxseed Oil (#FLAXSEED OIL) 1,300 mg PO QDAY Qty: 0 colesevelam [WelChol] 625 MG tablet 625 mg PO HS Qty: 0 Referrals: Tino Avery MD [Primary Care Provider] - Stand Alone Forms: Patient Portal/API, Work Release Note
[2022-08-16 12:37] VITALS: BP 167/74; PULSE 76; RESP 17; O2SAT 99
== END 2022-08-16 12:37 | disposition home or self-care (01) ==
PROVIDERS: Emergency Provider Emergency Medicine; Family Provider Internal Medicine; PCP Internal Medicine
DX: S93.402A Sprain of unspecified ligament of left ankle, initial encounter (principal); W18.30XA Fall on same level, unspecified, initial encounter
CPT/HCPCS: 73562; 73610; 81003; 99282; 99283

== ENCOUNTER → 2022-09-12 10:40 | Outpatient (CLI) | payer OTHER, SELFPAY ==
--- NOTE | 2022-09-12 | DI.MRI.S_ITS ---
PROCEDURE: MR ANKLE LT WO CON INDICATIONS: Sprain of unspecified ligament of left ankle, subsequent enc TECHNIQUE: Noncontrast sagittal T1 spin echo and T2 fast spin echo with fat saturation, axial proton density fast spin echo and T2 fast spin echo with fat saturation, coronal T1 spin echo and T2 fast spin echo with fat saturation through the ankle/hindfoot. COMPARISON: [facility], CR, XR ANKLE LT MIN 3V, 08/16/2022, 11:18. FINDINGS: Image quality: Excellent. Bones and joints: Mild osseous edema is seen in the posterior lateral talus, which may be secondary to an osseous contusion. There is mild edema at the superior talar head adjacent to the dorsal talonavicular ligament origin. Mild degenerative changes at the navicular cuneiform articulations. There are severe degenerative changes at the 1st and 2nd tarsometatarsal joints there are moderate degenerative changes in the lesser tarsometatarsal joints. Metal artifact is seen at the distal 5th metatarsal. Nonspecific osseous edema is partially imaged within the distal 3rd metatarsal shaft. A benign bone island is seen in the medial talus. Nonspecific soft tissue edema is seen surrounding the ankle. Medial structures: The deep and superficial layers of the deltoid ligament appear intact. The spring ligament components are intact. Small amount of fluid in the posterior tibialis tendon sheath and flexor digitorum longus tendon sheath may indicate mild tenosynovitis. Physiologic fluid is seen along the flexor hallucis longus tendon. The posterior tibial neurovascular bundle appears normal within the tarsal tunnel, without extrinsic mass effect. Lateral structures: There is complete tearing of the anterior talofibular ligament. Increased signal intensity within the calcaneofibular ligament is compatible with a low-grade sprain. The posterior talofibular ligament is intact. The anterior and posterior tibiofibular ligaments are intact. Mild peroneus brevis and longus tenosynovitis. There is mild partial effacement of the fat in the sinus tarsi with a superiorly projecting cyst laterally measuring up to 16 x 17 x 14 mm. Anterior structures: The tibialis anterior, extensor hallucis longus, and extensor digitorum longus tendons appear intact. The dorsal talonavicular ligament appears intact. Posterior and plantar structures: Achilles tendon is intact. Mild edema is seen in Kager's fat pad that may indicate Achilles peritenonitis. There is mild thickening of the proximal plantar fascia without surrounding edema. No abductor digiti quinti muscle atrophy to suggest Herman neuropathy. IMPRESSION: 1. Small area of trabecular bone injury at the posterolateral talus may be secondary to an osseous contusion. Nonspecific osseous edema is partially imaged within the third metatarsal shaft, which may be related to osseous contusion in the setting of recent trauma versus chronic repetitive trauma or other cause of edema. 2. Complete tearing of the anterior talofibular ligament with surrounding soft tissue edema. Low-grade sprain of the calcaneofibular ligament. 3. Mild peroneus brevis and longus tenosynovitis. 4. Mild tenosynovitis of the distal posterior tibialis and flexor digitorum longus tendons. 5. Severe osteoarthrosis at the 1st and 2nd tarsometatarsal joints and moderate degenerative changes throughout the remainder of the midfoot. 6. Achilles peritenonitis. Mild chronic proximal plantar fasciitis. Approved by: Benjamin Barnard M.D. on 09/12/2022 at 12:06
== END ==
PROVIDERS: Family Provider Internal Medicine; PCP Internal Medicine; Referring Provider Internal Medicine; Visit Provider Internal Medicine
DX: S93.492A Sprain of other ligament of left ankle, initial encounter (principal); S93.412A Sprain of calcaneofibular ligament of left ankle, initial encounter; M65.872 Other synovitis and tenosynovitis, left ankle and foot; M19.072 Primary osteoarthritis, left ankle and foot; M76.62 Achilles tendinitis, left leg; M72.2 Plantar fascial fibromatosis; M79.672 Pain in left foot; R60.0 Localized edema; X58.XXXA Exposure to other specified factors, initial encounter
CPT/HCPCS: 73721

== ENCOUNTER → 2024-04-04 11:22 | Outpatient (CLI) | payer OTHER, SELFPAY ==
--- NOTE | 2024-04-04 11:24 | DI.MG.S_ITS ---
BILATERAL DIGITAL SCREENING MAMMOGRAM 3D/2D WITH CAD: 04/04/2024 CLINICAL: Routine screening. Comparison is made to exams dated: 06/02/2022 mammogram, 04/07/2021 mammogram, 08/15/2017 mammogram, 05/05/2021 ultrasound, and 05/05/2021 mammogram - [facility]. There are scattered areas of fibroglandular density (category b / 25%-50% glandular tissue). Current study was also evaluated with a Computer Aided Detection (CAD) system. No significant masses, calcifications, or other findings are seen in either breast. There has been no significant interval change. IMPRESSION: NEGATIVE There is no mammographic evidence of malignancy. A 1 year screening mammogram is recommended. Based on the Tyrer Cuzick model (a risk assessment model) the patient's lifetime risk is 9.6% and her 10 year risk is 4.9%. According to the ACR, ACS, and NCCN guidelines, an annual breast MRI exam along with mammogram is recommended if the patient's lifetime risk is 20% or greater. This exam was interpreted at Station ID: [id number]. NOTE: For mammograms, a report in lay terms will be sent to the patient. Approximately 15% of breast malignancies will not be visualized mammographically. In the management of a palpable breast mass, a negative mammogram must not discourage biopsy of a clinically suspicious lesion. Electronically Signed By: Nestor guardado/rolando:04/04/2024 15:26:48 letter sent: Normal Exam ACR BI-RADS Category 1: Negative
== END ==
PROVIDERS: Family Provider Internal Medicine; PCP Internal Medicine; Referring Provider Internal Medicine; Visit Provider Internal Medicine
DX: Z12.31 Encounter for screening mammogram for malignant neoplasm of breast (principal)
CPT/HCPCS: 77063; 77067

== ENCOUNTER 2024-11-29 08:33 | Emergency (ER) | payer OTHER, SELFPAY ==
[2024-11-29] VITALS (21 sets, daily range): BP systolic 141–200; BP diastolic 63–104; PULSE 53–65; RESP 14–27; TEMP 36.6; O2SAT 97–100; BMI 30.9
--- NOTE | 2024-11-29 08:36 | DI.RAD.S_ITS ---
PROCEDURE: XR CHEST 1V INDICATIONS: Chest Pain TECHNIQUE: One view of the chest was acquired. COMPARISON: [facility], CR, XR CHEST 1V, 03/15/2021, 10:25. FINDINGS: Surgical changes and devices: None. Lungs and pleura: Lungs are clear. No pleural effusions or pneumothorax. Mediastinum: Mediastinal contours appear normal. Heart size is normal. Bones and chest wall: No suspicious bony lesions. Overlying soft tissues appear unremarkable. IMPRESSION: No acute cardiopulmonary pathology. Dictated by: Thee Araujo M.D. on 11/29/2024 at 9:18 Approved by: Thee Araujo M.D. on 11/29/2024 at 9:20
--- NOTE | 2024-11-29 08:47 | DI.CT.S_ITS ---
PROCEDURE: CT ANGIO HEAD AND NECK INDICATIONS: hx of brain aneursym TECHNIQUE: After the administration of intravenous contrast, 1 mm thick sections acquired from the aortic arch through the [place] of [place]. 3-dimensional fdxnjdj-ziskgiloa-lqeceduvcx (MIP) and/or volume rendering reformats were acquired of the central intracranial vasculature and neck separately. For radiation dose reduction, the following was used: automated exposure control, adjustment of mA and/or kV according to patient size. COMPARISON: [facility], CT, CT HEAD/BRAIN WO [facility], 11/29/2024, 9:14. FINDINGS: Image quality: Diagnostic. Cerebral CT Angiogram: Internal carotid arteries: No acute findings. Intracranial ICA are patent with no significant stenosis. No occlusion. No aneurysm. Anterior cerebral arteries: Unremarkable. No significant stenosis. No occlusion. No aneurysm. Middle cerebral arteries: Unremarkable. No significant stenosis. No occlusion. No aneurysm. Posterior cerebral arteries: Unremarkable. No significant stenosis. No occlusion. No aneurysm. Basilar artery: Unremarkable. No significant stenosis. No occlusion. No aneurysm. Vertebral arteries: Unremarkable as visualized. Dural venous sinuses: Unremarkable given phase of enhancement. Other: Arterial phase appearance of the brain parenchyma is unremarkable. Neck CT Angiogram: Internal carotid arteries: Unremarkable. No significant stenosis. No dissection or occlusion. Note made of medial deviation of the cervical left carotid anterior to the dens. Common carotid arteries: Unremarkable. No significant stenosis. No dissection or occlusion. External carotid arteries: Unremarkable. No occlusion. Vertebral arteries: Unremarkable. No significant stenosis. No dissection or occlusion. Aortic Arch and Mediastinum: Partially visualized aortic arch unremarkable without evidence of aneurysm. Origins of the great vessels unremarkable. Other: Arterial phase soft tissues of the neck and chest are unremarkable. IMPRESSION: No significant intracranial arterial abnormality is seen. No aneurysms identified. No significant abnormality is seen within the arteries of the neck. Any quantitative measurements of stenosis were performed using NASCET criteria. Dictated by: Will Quarles M.D. on 11/29/2024 at 9:55 Approved by: Will Quarles M.D. on 11/29/2024 at 10:09
--- NOTE | 2024-11-29 08:47 | DI.CT.S_ITS ---
PROCEDURE: CT HEAD/BRAIN WO CON INDICATIONS: headache dizziness/ hx of brain aneursym TECHNIQUE: Noncontrast 4.5 mm thick angled axial sections acquired from the foramen magnum to the vertex, with coronal and sagittal reformats. For radiation dose reduction, the following was used: automated exposure control, adjustment of mA and/or kV according to patient size. COMPARISON: [facility], CT, CT HEAD/BRAIN WO CON, 02/19/2020, 12:15. FINDINGS: Image quality: Diagnostic. CSF spaces: Basal cisterns are patent. No extra-axial fluid collections. The ventricles are symmetric in size and shape. Brain: No intracranial bleeds or mass effect. There is cerebral volume loss, with resultant ventricular and sulcal prominence. There are periventricular and deep white matter chronic small vessel ischemic changes. There is intracranial internal carotid artery atherosclerosis. Skull and face: Calvarium and visualized facial bones appear intact, without suspicious lesions. Sinuses: Visualized sinuses and mastoids are clear. IMPRESSION: No acute intracranial pathology. Dictated by: Thee Araujo M.D. on 11/29/2024 at 9:35 Approved by: Thee Araujo M.D. on 11/29/2024 at 9:40
--- NOTE | 2024-11-29 09:05 | ED.DIZZY ---
HPI - Dizziness General Chief Complaint: Dizziness Stated Complaint: Feeling Dizzy x 1 day Time Seen by Provider: 11/29/24 08:41 History of Present Illness HPI Narrative: 64-year-old female history of hypertension bipolar and brain aneurysm presents with headache and dizziness that started last evening while she was sleeping she noticed that the room was spinning around her and subsequently this morning continued to be symptomatic and now with a headache in the back of her head. Patient denies fever chills stiff neck rash cough runny nose sore throat chest pain shortness of breath blurred vision nausea vomiting diarrhea. Patient has not taken anything for this sharp intermittent pain. Other than what is stated 14 point review of system is negative. Related Data Home Medications ?Medication ?Instructions ?Recorded ?Confirmed CA PANTOTHENATE/FOLIC ACID/VIT 1 tab PO QDAY ##0 10/10/12 (MULTIVITAMIN) CHOLECALCIFEROL (VITAMIN D) 5,000 units PO QDAY ##0 10/10/12 DICLOFENAC SODIUM (VOLTAREN) 75 mg PO [facility] ##0 10/10/12 Flaxseed Oil (#FLAXSEED OIL) 1,300 mg PO QDAY ##0 10/10/12 colesevelam 625 mg tablet (WelChol) 625 mg PO HS ##0 10/10/12 metaxalone 800 mg tablet (Skelaxin) 800 mg PO HS ##0 10/10/12 misoprostol 200 mcg tablet 200 mcg PO QDAY ##0 10/10/12 (Cytotec) Previous Rx's ?Medication ?Instructions ?Recorded meclizine 25 mg tablet 25 mg PO TID dizziness #30 tabs 11/29/24 Allergies Allergy/AdvReac Type Severity Reaction Status Date / Time oxycodone (OXYCODONE) AdvReac Intermediate VOMIT Verified 11/29/24 08:57 Review of Systems Review of Systems ROS Unobtainable: All systems reviewed & are unremarkable except as noted in HPI and below Patient History Medical History Chronic bronchitis Hypertension Pulmonary nodule, left alcohol intake frequency: holidays/special occasions only Exam Narrative Exam Narrative: GENERAL: [64] year old patient appears stated age. Well-developed patient, in mild distress. HEAD: Atraumatic. Normocephalic. EYES: Pupils equal round and reactive. Extraocular motions intact. No scleral icterus. No injection or drainage. ENT: Nose without bleeding, purulent drainage. Throat without erythema, tonsillar hypertrophy or exudate. Airway patent. NECK: Trachea midline. Non tender CARDIOVASCULAR: Bradycardic but regular rate and rhythm without murmurs, gallops, or rubs. RESPIRATORY: Clear to auscultation. Breath sounds equal bilaterally. No wheezes, rales, or rhonchi. GASTROINTESTINAL: Abdomen soft, non-tender, nondistended. EXTREMITIES: No edema or joint tenderness. BACK: Nontender without deformity or crepitance. No flank tenderness. NEURO: AOx3. GCS of 15 nonfocal neuro exam alert and oriented x4 negative Romberg aluvrg-gq-fhih opposite heel to escalona intact and rapid alternating movements intact SKIN: No rash or erythema of visible areas Initial Vital Signs Initial Vital Signs: Vital Signs Temperature 97.8 F 11/29/24 08:57 Pulse Rate 56 L 11/29/24 08:57 Respiratory Rate 16 11/29/24 08:57 Blood Pressure 156/67 H 11/29/24 08:57 Pulse Oximetry 97 11/29/24 08:57 Oxygen Delivery Method Room Air 11/29/24 08:57 Course Orders Ordered: ED Orders 11/29/24 08:36 XR chest 1V Stat EKG-12 Lead Stat 11/29/24 08:47 CT angio head and neck Stat CT head/brain wo con Stat 11/29/24 08:55 Complete Blood Count AUTO DIFF Stat Comprehensive Metabolic Panel Stat Lipase Stat Magnesium Stat NT-proBNP (BNP-Adult 18+) Stat PTT Partial Thromboplastin [place] Stat Prothrombin Time INR Stat Troponin & CK Cardiac Panel Stat Discontinued Medications Lactated Ringer's (Lactated Ringers) 1,000 mls @ 1,000 mls/hr IV BOLUS ONE Stop: 11/29/24 11:29 Last Infusion: 11/29/24 12:38 Dose: Infused Documented By: Admin: 11/29/24 11:35 Dose: 1,000 mls/hr Documented By: CIRO Meclizine HCl (Meclizine Hcl 12.5 Mg Tablet) 25 mg PO NOW ONE Stop: 11/29/24 10:31 Last Admin: 11/29/24 11:32 Dose: 25 mg Documented By: CIRO Vital Signs Vital signs: Vital Signs - 8 hr 11/29/24 08:57 Temperature 97.8 F Pulse Rate 56 L Respiratory Rate 16 Blood Pressure 156/67 H Pulse Oximetry 97 Oxygen Delivery Method Room Air MDM - Dizziness Lab Data 11/29/24 08:55 11/29/24 08:55 Labs: Lab Results 11/29/24 Range/Units 08:55 WBC 7.5 (4.5-11.0) X10^3/uL RBC 3.88 L (4.0-5.2) X10^6/uL Hgb 12.6 (12.0-16.0) g/dL Hct 37.0 (36-46) % MCV 95.4 (80-100) fL MCH 32.5 (26-34) PG MCHC 34.1 (30-36) % RDW 13.0 (11.6-14.8) % Plt Count 253 (150-400) X10^3/uL Neut % (Auto) 72.6 (50-75) % Lymph % (Auto) 16.9 L (25-40) % [place] % (Auto) 6.5 (3-14) % Eos % (Auto) 3.4 (2-4) % Baso % (Auto) 0.6 (0-2) % Neut # (Auto) 5500 (8330-1895) /uL Lymph # (Auto) 1300 (7765-3276) /uL [place] # (Auto) 500 (0-900) /uL Eos # (Auto) 300 (0-450) /uL Baso # (Auto) 0 (0-100) /uL PT 10.9 (9.4-12.5) SECONDS INR 1.0 (0.9-1.3) APTT 31 (25.1-36.5) SECONDS Sodium 139 (137-145) mmol/L Potassium 4.5 (3.4-5.1) mmol/L Chloride 109 H (98-107) mmol/L Carbon Dioxide 22 (22-32) mmol/L BUN 30 H (7-17) mg/dL Creatinine 1.25 H (0.52-1.04) mg/dL Estimated GFR 48 L (>60) mL/min BUN/Creatinine Ratio 24.0 H (6-22) Glucose 115 H (70-99) mg/dL Calcium 10.7 H (8.4-10.2) mg/dL Magnesium 2.1 (1.6-2.3) mg/dL Total Bilirubin 0.4 (0.2-1.3) mg/dL AST 38 H (14-36) IU/L ALT 43 H (<35) IU/L Alkaline Phosphatase 72 (38-126) U/L Total Creatine Kinase 54 (30-135) U/L Troponin I < 0.012 (0.01-0.034) ng/mL NT-Pro-B Natriuret Pep 105 (<125) pg/mL Total Protein 7.1 (6.3-8.2) g/dL Albumin 4.6 (3.5-5.0) g/dL Globulin 2.5 (1.7-4.1) g/dL Albumin/Globulin Ratio 1.8 (1.0-2.8) Lipase 376 H (23-300) U/L Urine Dip Bedside Urine Glucose Negative Bedside Urine Bilirubin - Negative Bedside Urine Ketone - Negative Urine Specific [place] 1.005 Bedside Urine Occult Blood - Negative Bedside Urine pH 6.0 Bedside Urine Protein - Negative Bedside Urine Urobilinogen - Negative Bedside Urine Nitrite - Negative Bedside Urine Leukocytes - Negative Esterase Imaging Data Chest x-ray: Radiologist's Impression: [address] [address] XRay Report Signed Patient: Staci Nance MR#: [id number] : 1960 Acct:[id number] Age/Sex: 64 / F Date of Service: 11/29/24 Loc: ED Accession Number: [id number] Procedure: XR chest 1V Ordering Provider: Zay Jane D.O. PROCEDURE: XR CHEST 1V INDICATIONS: Chest Pain TECHNIQUE: One view of the chest was acquired. COMPARISON: [facility], , XR CHEST 1V, 03/15/2021, 10:25. FINDINGS: Surgical changes and devices: None. Lungs and pleura: Lungs are clear. No pleural effusions or pneumothorax. Mediastinum: Mediastinal contours appear normal. Heart size is normal. Bones and chest wall: No suspicious bony lesions. Overlying soft tissues appear unremarkable. IMPRESSION: No acute cardiopulmonary pathology. Dictated by: Thee Araujo M.D. on 11/29/2024 at 9:18 Approved by: Thee Araujo M.D. on 11/29/2024 at 9:20 CT scan - head: Radiologist's Impression: [address] [address] [address] Scan Report Signed Patient: Staci Nance MR#: [id number] : 1960 Acct:[id number] Age/Sex: 64 / F Date of Service: 11/29/24 Loc: ED Accession Number: [id number] Procedure: CT head/brain wo con Ordering Provider: Zay Jane D.O. PROCEDURE: CT HEAD/BRAIN WO CON INDICATIONS: headache dizziness/ hx of brain aneursym TECHNIQUE: Noncontrast 4.5 mm thick angled axial sections acquired from the foramen magnum to the vertex, with coronal and sagittal reformats. For radiation dose reduction, the following was used: automated exposure control, adjustment of mA and/or kV according to patient size. COMPARISON: [facility], CT, CT HEAD/BRAIN WO CON, 02/19/2020, 12:15. FINDINGS: Image quality: Diagnostic. CSF spaces: Basal cisterns are patent. No extra-axial fluid collections. The ventricles are symmetric in size and shape. Brain: No intracranial bleeds or mass effect. There is cerebral volume loss, with resultant ventricular and sulcal prominence. There are periventricular and deep white matter chronic small vessel ischemic changes. There is intracranial internal carotid artery atherosclerosis. Skull and face: Calvarium and visualized facial bones appear intact, without suspicious lesions. Sinuses: Visualized sinuses and mastoids are clear. IMPRESSION: No acute intracranial pathology. Dictated by: Thee Araujo M.D. on 11/29/2024 at 9:35 Approved by: Thee Araujo M.D. on 11/29/2024 at 9:[address] [address] [address] Scan Report Signed Patient: Staci Nance MR#: [id number] : 1960 Acct:[id number] Age/Sex: 64 / F Date of Service: 11/29/24 Loc: ED Accession Number: [id number] Procedure: CT angio head and neck Ordering Provider: Zay Jane D.O. PROCEDURE: CT ANGIO HEAD AND NECK INDICATIONS: hx of brain aneursym TECHNIQUE: After the administration of intravenous contrast, 1 mm thick sections acquired from the aortic arch through the [place] of [place]. 3-dimensional jxzfkqp-npiayeker-dsnahymtzl (MIP) and/or volume rendering reformats were acquired of the central intracranial vasculature and neck separately. For radiation dose reduction, the following was used: automated exposure control, adjustment of mA and/or kV according to patient size. COMPARISON: [facility], CT, CT HEAD/BRAIN WO CON, 11/29/2024, 9:14. FINDINGS: Image quality: Diagnostic. Cerebral CT Angiogram: Internal carotid arteries: No acute findings. Intracranial ICA are patent with no significant stenosis. No occlusion. No aneurysm. Anterior cerebral arteries: Unremarkable. No significant stenosis. No occlusion. No aneurysm. Middle cerebral arteries: Unremarkable. No significant stenosis. No occlusion. No aneurysm. Posterior cerebral arteries: Unremarkable. No significant stenosis. No occlusion. No aneurysm. Basilar artery: Unremarkable. No significant stenosis. No occlusion. No aneurysm. Vertebral arteries: Unremarkable as visualized. Dural venous sinuses: Unremarkable given phase of enhancement. Other: Arterial phase appearance of the brain parenchyma is unremarkable. Neck CT Angiogram: Internal carotid arteries: Unremarkable. No significant stenosis. No dissection or occlusion. Note made of medial deviation of the cervical left carotid anterior to the dens. Common carotid arteries: Unremarkable. No significant stenosis. No dissection or occlusion. External carotid arteries: Unremarkable. No occlusion. Vertebral arteries: Unremarkable. No significant stenosis. No dissection or occlusion. Aortic Arch and Mediastinum: Partially visualized aortic arch unremarkable without evidence of aneurysm. Origins of the great vessels unremarkable. Other: Arterial phase soft tissues of the neck and chest are unremarkable. IMPRESSION: No significant intracranial arterial abnormality is seen. No aneurysms identified. No significant abnormality is seen within the arteries of the neck. Any quantitative measurements of stenosis were performed using NASCET criteria. Dictated by: Will Quarles M.D. on 11/29/2024 at 9:55 Approved by: Will Quarles M.D. on 11/29/2024 at 10:09 ECG Data Interpretation: Sinus Dejuan HR 52 NV 150 QRS [address]-t wave change No previous ekg MDM Narrative Medical decision making narrative: All lab work, vital signs, nurse triage note, medication list, previous ER visits, and all imaging studies reviewed. CT a head and neck and CT head without contrast showed no acute process. Chest x-ray showed no acute process. White count was normal. BUN showed 30 creatinine 1.25. Troponin normal lipase 376. EKG showed sinus bradycardia heart rate 52 with no STT wave changes. Differential diagnosis includes CVA TIA vertigo Meniere's disease BPPV viral labyrinthitis subdural hemorrhage electrolyte derangement. Patient given 1 L of lactated ringer and meclizine 25 mg here and will be discharged on meclizine prescription to follow up with PCP next week for re-evaluation. Discharge Plan Departure Patient Disposition: Home Clinical Impression: Dizziness Instructions: DI for Vertigo Activity Restrictions/Additional Instructions: Return with new or worsening symptoms. Take your medicines as directed. Follow up with PCP next week for re-evaluation. Prescriptions: New meclizine 25 mg tablet 25 mg PO TID Qty: 30 0RF No Action DICLOFENAC SODIUM (VOLTAREN) 75 mg PO [facility] Qty: 0 misoprostol [Cytotec] 200 MCG tablet 200 mcg PO QDAY Qty: 0 metaxalone [Skelaxin] 800 MG tablet 800 mg PO HS Qty: 0 CHOLECALCIFEROL (VITAMIN D) 5,000 units PO QDAY Qty: 0 CA PANTOTHENATE/FOLIC ACID/VIT (MULTIVITAMIN) 1 tab PO QDAY Qty: 0 Flaxseed Oil (#FLAXSEED OIL) 1,300 mg PO QDAY Qty: 0 colesevelam [WelChol] 625 MG tablet 625 mg PO HS Qty: 0 Referrals: Tino Avery MD [Primary Care Provider, Internal Medicine] Stand Alone Forms: Patient Portal/API
--- NOTE | 2024-11-29 09:09 | EKG_ITS ---
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
[2024-11-29 09:17] LABS: Add Manual Diff / Slide Review NO; Basophils Absolute Auto 0 /uL (0-100); Basophils Percent Auto 0.6 % (0-2); Eosinophils Absolute Auto 300 /uL (0-450); Eosinophils Percent Auto 3.4 % (2-4); Hemoglobin 12.6 g/dL (12.0-16.0); Lymphocytes Absolute Auto 1300 /uL (1100-4500); Lymphocytes Percent Auto 16.9 % (25-40); Mean Corpuscular HGB Conc 34.1 % (30-36); Mean Corpuscular Hemoglobin 32.5 PG (26-34); Mean Corpuscular Volume 95.4 fL (80-100); Monocytes Absolute Auto 500 /uL (0-900); Monocytes Percent Auto 6.5 % (3-14); Neutrophils Absolute Auto 5500 /uL (1500-7000); Neutrophils Percent Auto 72.6 % (50-75); Platelet Count 253 X10^3/uL (150-400); Prothrombin Time 10.9 SECONDS (9.4-12.5); Red Blood Cell Count 3.88 X10^6/uL (4.0-5.2); White Blood Cell Count 7.5 X10^3/uL (4.5-11.0)
[2024-11-29 09:20] LABS: PTT Partial Thromboplastin Tim 31 SECONDS (25.1-36.5)
[2024-11-29 09:21] LABS: Alanine Aminotransferase 43 IU/L (<35); Albumin 4.6 g/dL (3.5-5.0); Albumin Globulin Ratio 1.8 (1.0-2.8); Alkaline Phosphatase 72 U/L (38-126); Aspartate Aminotransferase 38 IU/L (14-36); Bilirubin Total 0.4 mg/dL (0.2-1.3); Blood Urea Nitrogen 30 mg/dL (7-17); Calcium 10.7 mg/dL (8.4-10.2); Carbon Dioxide 22 mmol/L (22-32); Chloride 109 mmol/L (98-107); Creatine Kinase 54 U/L (30-135); Estimated Glomerular Filt Rate 48 mL/min (>60); Globulin 2.5 g/dL (1.7-4.1); Glucose 115 mg/dL (70-99); HEMOLYSIS < 15 (0-50); Lipase 376 U/L (23-300); Magnesium 2.1 mg/dL (1.6-2.3); Potassium 4.5 mmol/L (3.4-5.1); Sodium 139 mmol/L (137-145); Total Protein 7.1 g/dL (6.3-8.2)
[2024-11-29 09:33] LABS: NT-proBNP (BNP-Adult 18+) 105 pg/mL (<125); Troponin I < 0.012 ng/mL (0.01-0.034)
[2024-11-29] MEDS: MECLIZINE HCL 12.5 MG TABLET 25 MG PO (11:32)
[2024-11-29] MEDS: LACTATED RINGERS 1,000 ML 1000 ML IV (11:35)
[2024-11-29] MEDS: ACETAMINOPHEN 325 MG TABLET 650 MG PO (13:11)
[2024-11-29] MEDS: KETOROLAC 30 MG/ML VIAL 15 MG IV (13:25)
[2024-11-29] MEDS: methylPREDNISolone 125 MG/2 ML VIAL IV (13:25)
== END 2024-11-29 14:00 | disposition home or self-care (01) ==
PROVIDERS: Emergency Provider Family Medicine; Family Provider Internal Medicine; PCP Internal Medicine
DX: R42 Dizziness and giddiness (principal); R51.9 Headache, unspecified; R00.1 Bradycardia, unspecified
CPT/HCPCS: 36415; 70450; 70496; 70498; 71045; 80053; 81003; 82550; 83690; 83735; 83880; 84484; 85025; 85610; 85730; 93005; 96361; 96374; 96375; 99284; J1885; J2919; Q9967